=== PATIENT | male | born 1940 | race Caucasian/White ===

== ENCOUNTER 2021-07-15 10:24 | Day surgery (SDC) | payer MEDICARE ==
[2021-07-14 12:14] VITALS: BMI 19.5
[~2021-07-15 10:24] MED LIST: EPINEPHrine 0.3 MG in Ophthalmic Irrigation Solution 500 ML IRR SCH
[2021-07-15] MEDS ORDERED: Cyclopentolate 1% Opth Drop 2 ML BOT ONE (10:49)
[2021-07-15] MEDS ORDERED: Phenylephrine 2.5% Ophth Soln 5 ML BOT ONE (10:49)
[2021-07-15] MEDS ORDERED: Midazolam HCl 2 mg/2 ml Vial ONE (12:03)
[2021-07-15] MEDS ORDERED: fentaNYL Citrate/PF 100 MCG/2 ML SYRINGE ONE (12:03)
[2021-07-15] MEDS ORDERED: Propofol 500 MG/50 ML VIAL ONE (12:03)
[2021-07-15] MEDS ORDERED: Triamcinolone 40 MG/ML VIAL ONE (12:24)
[2021-07-15] MEDS ORDERED: Lidocaine 1% PF 5 ML VIAL ONE (12:24)
[2021-07-15] MEDS ORDERED: Lidocaine 4% PF 5 ML AMP ONE (12:24)
[2021-07-15] MEDS ORDERED: Maxitrol 0.1% Opth Oint 3.5 GM TUBE ONE (12:24)
[2021-07-15] MEDS ORDERED: PROPOFOL 200 MG/20 ML VIAL ONE (12:24)
[2021-07-15] MEDS ORDERED: Bupivacaine 0.75% 10 ML VIAL ONE (12:24)
[2021-07-15] MEDS ORDERED: CEFAZOLIN 1 GM VIAL ONE (12:24)
== END 2021-07-15 14:45 | disposition home or self-care (01) ==
LOC: SDC 10:24
PROVIDERS: ATTEND Ophthalmology Retina Specialist
PROC: 08T53ZZ Resection of Left Vitreous, Percutaneous Approach (ICD-10-PCS; principal; 2021-07-15)
DX: H33.012 Retinal detachment with single break, left eye (principal); H59.022 Cataract (lens) fragments in eye following cataract surgery, left eye; H27.02 Aphakia, left eye; F17.200 Nicotine dependence, unspecified, uncomplicated; N40.0 Benign prostatic hyperplasia without lower urinary tract symptoms; Z79.82 Long term (current) use of aspirin; Z79.899 Other long term (current) drug therapy
CPT/HCPCS: 67025; J0690; J2250; J2704; J3301; J3490

== ENCOUNTER 2021-10-21 10:26 | Day surgery (SDC) | payer MEDICARE ==
[2021-10-17 10:33] VITALS: BMI 20.2
[2021-10-21] MEDS ORDERED: Cyclopentolate 1% Opth Drop 2 ML BOT ONE (11:39)
[2021-10-21] MEDS ORDERED: Phenylephrine 2.5% Ophth Soln 5 ML BOT ONE (11:39)
[2021-10-21] MEDS ORDERED: Famotidine/PF 20 mg/2ml Vial ONE (11:50)
[2021-10-21] MEDS ORDERED: Ondansetron PF 4 MG/2 ML Vial ONE ×2 (11:50→13:16)
[2021-10-21] MEDS ORDERED: fentaNYL Citrate/PF 100 MCG/2 ML SYRINGE ONE (11:50)
[2021-10-21] MEDS ORDERED: Lidocaine 4% PF 5 ML AMP ONE (13:16)
[2021-10-21] MEDS ORDERED: Lidocaine 1% MPF 2 ML VIAL ONE ×2 (13:16)
[2021-10-21] MEDS ORDERED: CEFAZOLIN 1 GM VIAL ONE (13:16)
[2021-10-21] MEDS ORDERED: PROPOFOL 200 MG/20 ML VIAL ONE (13:16)
[2021-10-21] MEDS ORDERED: Maxitrol 0.1% Opth Oint 3.5 GM TUBE ONE (13:16)
[2021-10-21] MEDS ORDERED: Bupivacaine 0.75% 10 ML VIAL ONE (13:16)
[2021-10-21] MEDS ORDERED: Triamcinolone 40 MG/ML VIAL ONE (13:16)
== END 2021-10-21 15:28 | disposition home or self-care (01) ==
LOC: SDC 10:26
PROVIDERS: ATTEND Ophthalmology Retina Specialist
PROC: 08RK3JZ Replacement of Left Lens with Synthetic Substitute, Percutaneous Approach (ICD-10-PCS; principal; 2021-10-21)
DX: H27.02 Aphakia, left eye (principal); Z79.82 Long term (current) use of aspirin
CPT/HCPCS: J0171; J0690; J2405; J2704; J3301; J3490; S0028; V2632

== ENCOUNTER 2021-10-29 16:11 | Day surgery (SDC) | payer MEDICARE ==
[2021-10-29] MEDS ORDERED: EPINEPHrine 0.3 MG in Ophthalmic Irrigation Solution 500 ML IRR SCH (16:45)
[2021-10-29] MEDS ORDERED: Phenylephrine 2.5% Ophth Soln 5 ML BOT ONE (16:49)
[2021-10-29] MEDS ORDERED: Cyclopentolate 1% Opth Drop 2 ML BOT ONE (16:49)
[2021-10-29] MEDS ORDERED: fentaNYL Citrate/PF 100 MCG/2 ML SYRINGE ONE (22:47)
[2021-10-29] MEDS ORDERED: Midazolam HCl 2 mg/2 ml Vial ONE (22:47)
[2021-10-29] MEDS ORDERED: Lidocaine 4% PF 5 ML AMP ONE (23:31)
[2021-10-29] MEDS ORDERED: Maxitrol 0.1% Opth Oint 3.5 GM TUBE ONE (23:31)
[2021-10-29] MEDS ORDERED: Bupivacaine 0.75% 10 ML VIAL ONE (23:31)
[2021-10-29] MEDS ORDERED: PROPOFOL 200 MG/20 ML VIAL ONE (23:31)
== END 2021-10-30 01:08 | disposition home or self-care (01) ==
LOC: SDC 16:11
PROVIDERS: ATTEND Ophthalmology Retina Specialist
PROC: 08T53ZZ Resection of Left Vitreous, Percutaneous Approach (ICD-10-PCS; principal; 2021-10-29)
DX: H33.002 Unspecified retinal detachment with retinal break, left eye (principal); Z98.49 Cataract extraction status, unspecified eye; Z96.1 Presence of intraocular lens
CPT/HCPCS: 67025; J2250; J2704; J3490